=== PATIENT | male | born 1960 | race Caucasian/White ===

== ENCOUNTER → 2025-09-30 08:51 | Outpatient (REF) | payer MEDICARE, SELFPAY | LOC: HWRCS 08:51 | PROVIDERS: ATTENDING PHYSICIAN Internal Medicine Cardiovascular Disease; FAMILY PHYSICIAN Nurse Practitioner Family | DX: I42.9 Cardiomyopathy, unspecified (principal); R06.02 Shortness of breath | CPT/HCPCS: 78452; 93017; A9500 ==

== ENCOUNTER 2025-10-09 06:43 | Day surgery (SDC) | payer MEDICARE, SELFPAY ==
[2025-10-09] VITALS (11 sets, daily range): BP systolic 122–161; BP diastolic 86–121; BMI 28.5; BMI 27.2
[2025-10-09] MEDS: LOW STRENGTH ASPIRIN 81 MG PO (07:34)
[2025-10-09 07:41] LABS: Hematocrit 40.1 % (39.0-52.0); Hemoglobin 14.2 g/dL (13.0-18.0); Mean Corp Hgb Conc. 35.4 g/dL (33.0-37.0); Mean Corpuscular Volume 95.0 fL (80.0-94.0); Platelet Count 145 10^3/uL (130-400); Red Cell Dist. Width 13.0 % (11.5-14.5)
[2025-10-09 08:24] LABS: Blood Urea Nitrogen 19 mg/dl (9-20); Calcium 9.2 mg/dl (8.4-10.2); Carbon Dioxide 25 mmol/L (22-30); Chloride 105 mmol/L (98-107); Estimated Creatinine Clearance 83 ml/min; Glucose 111 mg/dl (70-99); Potassium 3.6 mmol/L (3.5-5.1); Sodium 137 mmol/L (135-145); eGFR > 60.00
--- NOTE | 2025-10-09 09:22 | ITS.CL.CATH ---
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
Cardiac Catheterization
Procedure Report:
LEFT HEART CATHETERIZATION
Date of Procedure: October 09, 2025
Referring: Benjy Richards MD
PROCEDURES:
1. Left heart catheterization, coronary angiogram.
2. Moderate sedation.
INDICATION: New Cardiomyopathy, abnormal stress test.
ACCESS: Right radial artery, 6Fr. sheath, under US guidance.
HEMODYNAMICS : (mmHg)
AO (s/d) : 128/91
LVEDP : 23
Mild to moderate aortic stenosis with mean transaortic gradient invasively of 27mmHG.
CORONARY FINDINGS
Dominance: Right
Left Main Trunk (LMT): Large caliber vessel that gives rise to the LAD and LCx branches and is free of angiographic disease.
Left Anterior Descending Artery (LAD): Large caliber vessel that gives off 2 major diagonal branches as it courses along the anterior inter-ventricular groove before wrapping around the cardiac apex. Mid LAD has a 40% tubular stenosis
Left Circumflex Artery (LCx): Large caliber vessel that gives off 2 major obtuse marginal (OM) branches as it courses along the atrio-ventricular (AV) groove. There is minimal luminal irregularities.
Right Coronary Artery (RCA): Large caliber dominant vessel that gives rise to the posterior descending artery (RPDA) and postero-lateral ventricular (RPLV) branches distally. There is minimal luminal irregularities.
SEDATION: 17 minutes of procedural sedation was utilized. IV Midazolam and IV Fentanyl were administered. An independent medical imaging technician was present to assist with and help manage the patient's level of consciousness and physiologic status.
RADIATION SUMMARY: Fluoro Time (min): 1.5, Dose (mGy): 292.74, DAP (Gy.cm2) : 22.3
Closure Device: There were no immediate intra-procedural complications. The sheath was pulled in the laborer tree tapping and a vascular-band applied to the right wrist for radial artery hemostasis using the patent hemostasis technique.
CONCLUSIONS
1. Non-obstructive coronary artery disease.
2. LVEDP elevated at 23mmHG.
RECOMMENDATIONS
1. Wean radial band per protocol. Monitor right hand perfusion and for bleeding from the radial site following removal of the vascular-band following trans-radial access.
2. Continue aggressive goal directed medical therapy for NICM and risk factor modification for secondary CAD prevention.
3. Hydrate with normal saline to mitigate the risk of contrast-induced acute kidney injury.
4. Follow-up with Dr. Richards
5. Outpatient Cardiac Rehab
6. Strong encouraged smoking cessation.
Daphne Bolton MD, FACC, [facility]
Copy to: Benjy Richards MD
--- NOTE | 2025-10-09 11:05 | PTCARENOTE ---
Patients bloodpressure began to trend up. GARLAND Lopez notified. Patient instructed to go home and resume his normal medication regimen
== END 2025-10-09 11:15 | disposition home or self-care (01) ==
LOC: CATH 06:43
PROVIDERS: ATTENDING PHYSICIAN Internal Medicine Interventional Cardiology; FAMILY PHYSICIAN Nurse Practitioner Family; OTHER PHYSICIAN Internal Medicine Cardiovascular Disease
DX: I25.10 Atherosclerotic heart disease of native coronary artery without angina pectoris (principal); R94.39 Abnormal result of other cardiovascular function study; I42.9 Cardiomyopathy, unspecified; I35.0 Nonrheumatic aortic (valve) stenosis; I10 Essential (primary) hypertension; I08.3 Combined rheumatic disorders of mitral, aortic and tricuspid valves; R06.02 Shortness of breath; Z79.899 Other long term (current) drug therapy
CPT/HCPCS: 99152; 80048; 85027; 93458; C1769; Q9967